=== PATIENT | male | born 2000 | race African-American/Black ===

== ENCOUNTER 2019-03-31 12:07 | Emergency (ER) | payer MEDICAID ==
[~2019-03-31] VITALS: Ht 170.2 cm; Wt 64.0 kg
[2019-03-31] MEDS ORDERED: IBUPROFEN 600MG TABLET PO ONE (14:15)
[2019-03-31] MEDS ORDERED: TETANUS, DIPHTHERIA, PERTUSSIS VAC/PF 0.5ML (>7YR OLD) IM ONE (14:15)
[2019-03-31] MEDS ORDERED: LIDOCAINE HCL/PF 1% 10 MG/ML 5ML VIAL IJ ONE (16:00)
[2019-03-31] MEDS ORDERED: BACITRACIN ZINC OINT UDPKT TOP ONE (16:00)
[2019-03-31 16:58] VITALS: BP 110/72
== END 2019-03-31 17:00 | disposition home or self-care (01) ==
LOC: ER 12:24
DX: S61.551A Open bite of right wrist, initial encounter (principal); S51.852A Open bite of left forearm, initial encounter; S21.152A Open bite of left front wall of thorax without penetration into thoracic cavity, initial encounter; W54.0XXA Bitten by dog, initial encounter; Y93.89 Activity, other specified; Y92.410 Unspecified street and highway as the place of occurrence of the external cause; Z23 Encounter for immunization
CPT/HCPCS: 12001; 71101; 73060; 73110; 90471; 90715; 99283; A4217; J3490; Z7610